=== PATIENT | female | born 1980 | race African-American/Black ===

== ENCOUNTER 2017-08-30 17:59 | Emergency (ER) | payer OTHER ==
[~2017-08-30] VITALS: Ht 167.6 cm; Wt 68.0 kg
--- NOTE | ~2017-08-30 | EKG ---
[place] [address] [employer] [place] [address] ELECTROCARDIOGRAM REPORT Name: ALEYDA ROSAS Room #: [facility]#: [id number] Admission: 08/30/17 Attend Phys: Discharge: 08/30/17 Date of : 78 Report #: [id number] THIS REPORT FOR: //name// [facility] ED Test Date: 2017-08-30 Test Time: 18:31:38 Pat Name: ALEYDA ROSAS Department: Room: Gender: F Cocktail Waitress: kel : 1980 Requested By: Clay Guido Order Number: [id number] MD: Naga Santos Measurements Intervals [place] Rate: 107 P: 49 ID: [id number] QRS: 48 QRSD: 80 T: -8 QT: 323 QTc: 431 Interpretive Statements Sinus tachycardia Abnormal R-wave progression, early transition Nonspecific ST and T wave abnormality No previous ECG available for comparison Electronically Signed On 08-31-2017 7:51:02 CDT by Naga Santos [email or web address] <ELECTRONICALLY SIGNED> By: Naga Santos MD, [facility] 08/31/17 0751 [id number] Naga Santos MD, FACC /EPI
[2017-08-30 18:31] LABS: HEMATOCRIT 29.3 % (37.0-47.0); HEMOGLOBIN 8.8 gm/dL (12.0-15.0); MCH 19.9 pg (26.0-34.0); MCHC 30.1 g/dL (28.0-37.0); MCV 66.1 fL (80.0-100.0); PLATELET COUNT 339 thou/uL (150-400); RBC 4.44 mil/uL (4.20-5.00); RDW 18.1 % (10.5-14.5); WBC 10.9 thou/uL (4.0-11.0)
[2017-08-30 18:46] LABS: ANION GAP 11 mmol/L (7-16); BUN 8 mg/dL (7-18); CALCIUM 8.7 mg/dL (8.5-10.1); CHLORIDE 102 mmol/L (98-107); CO2 27 mmol/L (21-32); GLUCOSE 121 mg/dL (74-106); SODIUM 140 mmol/L (136-145)
[2017-08-30 18:47] LABS: POTASSIUM 2.9 mmol/L (3.5-5.1)
[2017-08-30 18:49] LABS: ABSOLUTE NEUTROPHILS 8.7 thou/uL (1.4-8.2)
[2017-08-30 18:50] LABS: ANISOCYTOSIS 2+; HYPOCHROMASIA 3+; MICROCYTES 2+; OVALOCYTES OCCASIONAL; POLYCHROMASIA SLIGHT
[2017-08-30 18:53] LABS: ALBUMIN 3.7 g/dL (3.4-5.0); LIPASE 216 U/L (73-393); SGOT 20 U/L (15-37); SGPT 19 U/L (30-65); TOTAL BILIRUBIN 0.4 mg/dL (<0.1-1.0); TOTAL PROTEIN 8.3 g/dL (6.4-8.2); TROPONIN-I < 0.04 ng/mL (<0.06)
[2017-08-30 19:52] LABS: URINE BILIRUBIN NEGATIVE (Negative); URINE BLOOD NEGATIVE (Negative); URINE CLARITY CLEAR; URINE COLOR YELLOW; URINE GLUCOSE-RANDOM* NEGATIVE (Negative); URINE KETONES NEGATIVE (Negative); URINE LEUKOCYTES-REFLEX 2+ (Negative); URINE NITRITE-REFLEX NEGATIVE (Negative); URINE PROTEIN (DIPSTICK) NEGATIVE (Negative); URINE SPECIFIC GRAVITY <= 1.005 (1.005-1.035); URINE UROBILINOGEN 0.2 E.U./dl (0.2-1.0)
[2017-08-30 20:00] LABS: BACTERIA-REFLEX None Seen /HPF (None Seen); CASTS None Seen /LPF (None Seen); SQUAMOUS 4-10 Moderate /LPF (0-3); URINE RBC None Seen /HPF (0-2); URINE WBC-REFLEX 6-15 Few /HPF (0-5)
[2017-08-30 20:01] LABS: CRYSTALS None Seen /LPF (None Seen)
[2017-08-30] MEDS ORDERED: POTASSIUM20 PO (21:14)
[2017-08-30] MEDS ORDERED: NAPROSYN500 MG PO (21:14)
[2017-08-30] MEDS ORDERED: TRAMADOL 50 MG50 MG PO (21:14)
[2017-08-30] MEDS ORDERED: KEFLEX500 M1 PO (21:14)
[2017-08-30 22:13] VITALS: BP 116/74
== END 2017-08-30 22:14 | disposition home or self-care (01) ==
LOC: ER 17:59
PROVIDERS: Emergency Medicine
DX: N12 Tubulo-interstitial nephritis, not specified as acute or chronic (principal); D25.9 Leiomyoma of uterus, unspecified; E87.6 Hypokalemia; D64.9 Anemia, unspecified; R10.9 Unspecified abdominal pain